=== PATIENT | male | born 1970 | race Caucasian/White ===

== ENCOUNTER 2016-09-17 18:42 | Emergency (ER) | payer BC ==
[~2016-09-17] VITALS: Ht 190.5 cm; Wt 127.0 kg
[~2016-09-17 18:42] MED LIST: LISI10TA5 PO; METF1000 PO
[2016-09-17 18:48] VITALS: BP 130/86; PULSE 95; RESP 14; TEMP 97; O2SAT 97
--- NOTE | 2016-09-17 18:48 | NUR ---
Patient to ER bed 03 to gown for evaluation. Side rails up. Report given to shift coordinator
--- NOTE | 2016-09-17 19:00 | NUR ---
Pt presents to ED with c/o right wrist pain 5/10 after sparring with son , radial pulse 2+, pain aggravated with movement. A&Ox4, no active bleeding or bruise noted. No further distress. Will continue to monitor
--- NOTE | 2016-09-17 19:15 | NUR ---
MD Martin at bedside examining
[2016-09-17] MEDS ORDERED: IBUPROFEN 600 MG TABLET PO ONE (19:45)
[2016-09-17 20:40] VITALS: BP 127/78; PULSE 89; RESP 16; TEMP 97; O2SAT 98
--- NOTE | 2016-09-17 20:40 | NUR ---
Patient given written and verbal discharge instructions and verbalizes understanding. ER MD Martin discussed with patient the results and treatment provided. ID arm band removed. Rx of given. Patient educated on pain management and to follow up with PMD. Pain Scale 0/10 Opportunity for questions provided and answered.
== END 2016-09-17 20:40 | disposition home or self-care (01) ==
LOC: SED 18:42
DX: M25.531 Pain in right wrist (principal); E11.9 Type 2 diabetes mellitus without complications; I10 Essential (primary) hypertension
CPT/HCPCS: 99284